=== PATIENT | female | born 1985 | race Caucasian/White ===

== ENCOUNTER 2022-11-24 10:13 | Emergency (ER) | payer OTHER ==
[2022-11-24 10:34] VITALS: BMI 38.0
[2022-11-24] MEDS ORDERED: ACETAMINOPHEN 1000 MG/100 ML BAG IVPB ONE (11:15)
[2022-11-24] MEDS ORDERED: ACETAMINOPHEN INJECTION 100 ML IVPB ONE (11:18)
[2022-11-24 11:37] LABS: BASO % 0.2 % (0-2.0); HEMATOCRIT 41.2 % (32.4-45.2); HEMOGLOBIN 14.4 GM/dL (10.7-15.3); LYMPH % 22.4 % (8-40); MCH 34.4 pg (25.7-33.7); MCHC 34.9 g/dl (32.0-36.0); MEAN CELL VOLUME 98.6 fl (80-96); MEAN PLT VOLUME 8.8 fl (7.5-11.1); MONO % 5.9 % (3.8-10.2); NEUT % 70.5 % (42.8-82.8); PLATELET COUNT 294 10^3/uL (134-434); RBC 4.17 M/mm3 (3.60-5.2); RDW 13.8 % (11.6-15.6); WHITE BLOOD COUNT 7.4 K/mm3 (4.0-10.0)
[2022-11-24 12:03] LABS: CALCIUM 9.1 mg/dL (8.5-10.1)
[2022-11-24 12:04] LABS: ALBUMIN 3.2 g/dl (3.4-5.0); BLOOD UREA NITROGEN 18.7 mg/dL (7-18)
[2022-11-24 12:09] LABS: BILIRUBIN,TOTAL 0.6 mg/dL (0.2-1)
[2022-11-24 15:50] VITALS: RESP 18; TEMP 97.2
[2022-11-24 16:37] VITALS: BP 113/66; PULSE 74
== END 2022-11-24 16:59 | disposition home or self-care (01) ==
LOC: JER 10:13
PROC: 3E0333Z Introduction of Anti-inflammatory into Peripheral Vein, Percutaneous Approach (ICD-10-PCS; principal; 2022-11-24)
DX: G44.209 Tension-type headache, unspecified, not intractable (principal)
CPT/HCPCS: 36415; 71045-TC-FY; 80053; 84132; 84443; 84484; 85025; 93005; 93010; 99285-25